=== PATIENT | female | born 1955 | race Caucasian/White ===

== ENCOUNTER → 2016-07-06 | Outpatient (CLI) | payer OTHER ==
[~2016-07-06] MED LIST: ADAL30TA10; ENAL5TAB98 PO; LEXA5TAB PO; PROT40TA PO
[2016-07-06 12:03] LABS: AUTOMATED NEUTROPHIL # 3.1 TH/MM3 (1.8-7.7); BASOPHIL % 0.2 % (0.0-2.0); EOSINOPHIL # 0.1 TH/MM3 (0-0.4); EOSINOPHIL % 2.1 % (0.0-4.0); HEMATOCRIT 38.8 % (35.0-46.0); LYMPH % 43.4 % (9.0-44.0); LYMPHOCYTE # 2.7 TH/MM3 (1.0-4.8); MEAN CELL VOLUME 95.6 FL (80.0-100.0); MEAN CORPUSCULAR HEMOGLOBIN 32.2 PG (27.0-34.0); MEAN CORPUSCULAR HGB CONC 33.7 % (32.0-36.0); MONO % 3.8 % (0.0-8.0); NEUT % 50.5 % (16.0-70.0); PLATELET COUNT 300 TH/MM3 (150-450); RED BLOOD COUNT 4.06 MIL/MM3 (4.00-5.30); RED CELL DISTRIBUTION WIDTH 13.9 % (11.6-17.2); WHITE BLOOD COUNT 6.2 TH/MM3 (4.0-11.0)
[2016-07-06 12:10] LABS: HEMO FLAGS AUTO DIFF
[2016-07-06 12:36] LABS: ALKALINE PHOSPHATASE 85 U/L (45-117); ALT (GPT) 31 U/L (10-53); ANION GAP 9 MEQ/L (5-15); AST (GOT) 22 U/L (15-37); BICARBONATE 27.7 MEQ/L (21.0-32.0); BLOOD UREA NITROGEN 13 MG/DL (7-18); CHLORIDE 104 MEQ/L (98-107); GLOMERULAR FILTRATION RATE 67 ML/MIN (>89); GLUCOSE,FASTING 100 MG/DL (74-99); HDL CHOLESTEROL 71.8 MG/DL (40.0-60.0); LDL CHOLESTEROL 85 MG/DL (0-99); POTASSIUM 4.3 MEQ/L (3.5-5.1); SODIUM (NA) 141 MEQ/L (136-145); TOTAL BILIRUBIN ADULT 0.3 MG/DL (0.2-1.0)
[2016-07-06 12:56] LABS: SCAN/DIFF AUTO DIFF CONFIRMED
[2016-07-06 12:57] LABS: PLATELET ESTIMATE SMEAR NORMAL (NORMAL); PLATELET MORPHOLOGY NORMAL (NORMAL)
[2016-07-13 10:15] LABS: HEMOGLOBIN A1a ND %
[2016-07-13 10:16] LABS: HEMOGLOBIN A1b ND %; HEMOGLOBIN Ao ND %; HEMOGLOBIN CHb ND %; HEMOGLOBIN F ND %; HEMOGLOBIN LA1C ND %; HEMOGLOBIN P3 ND %
== END ==
LOC: CLAB 11:38
PROVIDERS: ATTEND Family Medicine
DX: Z00.00 Encounter for general adult medical examination without abnormal findings (principal); R73.09 Other abnormal glucose; E78.2 Mixed hyperlipidemia; Z79.899 Other long term (current) drug therapy
CPT/HCPCS: 36415; 80053; 80061; 83036; 85025

== ENCOUNTER → 2017-01-05 | Outpatient (CLI) | payer OTHER ==
[2017-01-05 10:01] LABS: HDL CHOLESTEROL 66.7 MG/DL (40.0-60.0); INDIRECT BILIRUBIN 0.4 MG/DL (0.0-0.8); TOTAL BILIRUBIN ADULT 0.5 MG/DL (0.2-1.0)
== END ==
LOC: CLAB 08:49
PROVIDERS: ATTEND Family Medicine
DX: E78.2 Mixed hyperlipidemia (principal); Z79.899 Other long term (current) drug therapy
CPT/HCPCS: 36415; 80061; 80076

== ENCOUNTER → 2017-07-08 | Outpatient (CLI) | payer OTHER ==
[2017-07-08 08:55] LABS: AUTOMATED NEUTROPHIL # 3.8 TH/MM3 (1.8-7.7); BASOPHIL # 0.1 TH/MM3 (0-0.2); BASOPHIL % 1.4 % (0.0-2.0); EOSINOPHIL # 0.2 TH/MM3 (0-0.4); EOSINOPHIL % 2.9 % (0.0-4.0); HEMATOCRIT 37.9 % (35.0-46.0); HEMOGLOBIN 13.2 GM/DL (11.6-15.3); LYMPH % 31.3 % (9.0-44.0); LYMPHOCYTE # 2.1 TH/MM3 (1.0-4.8); MEAN CELL VOLUME 94.9 FL (80.0-100.0); MEAN CORPUSCULAR HGB CONC 34.8 % (32.0-36.0); MEAN PLATELET VOLUME 7.2 FL (7.0-11.0); MONOCYTE # 0.5 TH/MM3 (0-0.9); NEUT % 57.4 % (16.0-70.0); PLATELET COUNT 327 TH/MM3 (150-450); RED BLOOD COUNT 3.99 MIL/MM3 (4.00-5.30); RED CELL DISTRIBUTION WIDTH 13.6 % (11.6-17.2); WHITE BLOOD COUNT 6.6 TH/MM3 (4.0-11.0)
[2017-07-08 09:22] LABS: ALBUMIN 3.9 GM/DL (3.4-5.0); AST (GOT) 20 U/L (15-37); BICARBONATE 26.7 MEQ/L (21.0-32.0); BLOOD UREA NITROGEN 12 MG/DL (7-18); CALCIUM 8.9 MG/DL (8.5-10.1); CHLORIDE 102 MEQ/L (98-107); CREATININE 0.98 MG/DL (0.50-1.00); GLOMERULAR FILTRATION RATE 57 ML/MIN (>89); GLUCOSE,FASTING 109 MG/DL (74-99); SODIUM (NA) 135 MEQ/L (136-145)
[2017-07-08 09:23] LABS: ALT (GPT) 33 U/L (10-53); CHOLESTEROL 213 MG/DL (120-200); TRIGLYCERIDES 182 MG/DL (42-150)
[2017-07-08 09:26] LABS: ALKALINE PHOSPHATASE 77 U/L (45-117); CHOLESTEROL/ HDL RATIO 3.16 RATIO; HDL CHOLESTEROL 67.2 MG/DL (40.0-60.0); LDL CHOLESTEROL 109 MG/DL (0-99); TOTAL BILIRUBIN ADULT 0.6 MG/DL (0.2-1.0); TOTAL PROTEIN 8.1 GM/DL (6.4-8.2)
== END ==
LOC: CLAB 08:27
PROVIDERS: ATTEND Family Medicine
DX: E78.2 Mixed hyperlipidemia (principal); R73.09 Other abnormal glucose; I10 Essential (primary) hypertension; Z79.899 Other long term (current) drug therapy
CPT/HCPCS: 36415; 80053; 80061; 85025

== ENCOUNTER 2017-11-23 09:31 | Emergency (ER) | payer OTHER ==
[~2017-11-23] VITALS: Ht 170.2 cm; Wt 90.0 kg
[2017-11-23 09:47] VITALS: BP 118/71; PULSE 88; RESP 18; TEMP 98; O2SAT 97
[2017-11-23] MEDS ORDERED: KETOROLAC TROMETHAMINE 60 MG/2 ML (IM) VIAL IM ONE (10:15)
[2017-11-23] MEDS ORDERED: ORPHENADRINE INJ 60 MG/2 ML AMP IM ONE (10:15)
--- NOTE | 2017-11-23 10:24 | PD ---
HPI Chief Complaint: Pain: Acute or Chronic Time Seen by Provider: 09:54 Travel History International Travel<30 days: No Contact w/Intl Traveler<30days: No Traveled to known affect area: No History of Present Illness HPI 62-year-old female presents to the emergency department for evaluation of left hip and left knee pain that started 1 week ago. She denies any traumatic injury. She states the pain is worse with ambulation. Patient denies any fevers or chills. No loss of bowel or bladder control. No saddle anesthesias. Patient is unsure if the pain starts in the hip and radiates down to the knee or she has 2 separate pain issues. She does report history of osteoarthritis and had bilateral hip replacements. Patient reports history of hypertension and is on antihypertensives, but cannot recall the names. She denies any other chronic medical problems. Current pain is 10/10 to the left hip and left knee. No exacerbating or alleviating factors. Moderate severity. PFSH Past Medical History Asthma: No Blood Disorders: No Heart Rhythm Problems: No Cancer: No Cardiovascular Problems: Yes High Cholesterol: No Chest Pain: No Congestive Heart Failure: No COPD: No Endocrine: No Gastrointestinal Disorders: No Genitourinary: No Hypertension: Yes Immune Disorder: No Musculoskeletal: No Neurologic: No Psychiatric: No Reproductive: No Respiratory: Yes Myocardial Infarction: No Sleep Apnea: No Influenza Vaccination: Yes ?: Not Tubal Ligation: Yes Past Surgical History Abdominal Surgery: No AICD: No Arteriovenous Shunt: No Cardiac Surgery: No Ear Surgery: No Endocrine Surgery: No Eye Surgery: No Genitourinary Surgery: No Gynecologic Surgery: Yes (TUBALIGATION) Insulin Pump: No Joint Replacement: Yes (BILATERAL HIP) Neurologic Surgery: No Oral Surgery: No Pacemaker: No Prostatectomy: Yes (galo hip) Thoracic Surgery: No Other Surgery: Yes Social History Alcohol Use: Yes (5 BEERS DAILY) Tobacco Use: No (QUIT 2012) Substance Use: No Allergies-Medications (Allergen,Severity, Reaction): Coded Allergies: No Known Allergies (Verified , 07/03/11) Reported Meds & Prescriptions Reported Meds & Active Scripts Active Protonix (Pantoprazole Sodium) 40 Mg Tab 40 Mg PO DAILY Reported Adalat Cc 30 mg (Nifedipine) 30 Mg Tab 0 UNKNOWN DOSE Lexapro (Escitalopram Oxalate) 5 Mg Tab 0 PO DAILY UNKNOWN DOSE Vasotec (Enalapril Maleate) 5 Mg Tab 0 PO UNKNOWN DOSE Review of Systems Except as stated in HPI: all other systems reviewed are Neg Physical Exam Narrative GENERAL: Well-nourished, well-developed female patient, ambulatory. Afebrile. SKIN: Focused skin assessment warm/dry. No skin changes. HEAD: Normocephalic. Atraumatic. EYES: No scleral icterus. No injection or drainage. NECK: Supple, trachea midline. No JVD or lymphadenopathy. CARDIOVASCULAR: Regular rate and rhythm without murmurs, gallops, or rubs. Bilateral radial and pedal pulses are 2+. RESPIRATORY: Breath sounds equal bilaterally. No accessory muscle use. Lung sounds are clear to auscultation. GASTROINTESTINAL: Abdomen soft, non-tender, nondistended. MUSCULOSKELETAL: No cyanosis, or edema. Patient has tenderness over left lumbar paraspinal musculature, left lateral hip, left posterior knee. No obvious deformity. Pain is reproduced with movement of the left leg. BACK: Nontender without obvious deformity. No CVA tenderness. No midline spinal tenderness. Data Data Last Documented VS Vital Signs Date Time Temp Pulse Resp B/P (MAP) Pulse Ox O2 Delivery O2 Flow Rate FiO2 11/23/17 09:47 98.0 88 18 118/71 (87) 97 Orders Orders Hip, Uni(Ap&Lat) W Ap Pelvis (11/23/17 ) Knee, Complete (4vws) (11/23/17 ) Us Leg Venous Doppler (11/23/17 ) Ketorolac Inj (Toradol Inj) (11/23/17 10:15) Orphenadrine Inj (Norflex Inj) (11/23/17 10:15) MDM Medical Decision Making Medical Screen Exam Complete: Yes Emergency Medical Condition: Yes Medical Record Reviewed: Yes Interpretation(s) Last Impressions Lower Extremity Ultrasound 11/23/17 0000 Signed Impressions: CONCLUSION: 1. Negative study with no evidence of deep venous thrombosis. Knee X-Ray 11/23/17 0000 Signed Impressions: CONCLUSION: Degenerative changes. Trace joint effusion. No fracture Hip and Pelvis X-Ray 11/23/17 0000 Signed Impressions: CONCLUSION: Status post bilateral hip arthroplasty with no evidence of fracture or loosenin g. Differential Diagnosis Osteoarthritis versus sciatica versus sprain versus fracture versus DVT Narrative Course 62-year-old female presents to the emergency department for a left hip and left knee pain. She is unsure if she is radiation the pain are 2 separate issues. She denies a traumatic injury. No red flag symptoms. X-ray of the left hip with pelvis and x-ray of the left knee are ordered and pending. DVT unlikely, however, venous Doppler ultrasound left lower extremity is ordered and pending. Patient is given Toradol 60 mg IM, Norflex 60 mg IM for pain. X-ray of the left hip with pelvis shows status post bilateral hip arthroplasty with no evidence of fracture or loosening. X-ray of the left knee shows degenerative changes, trace joint effusion, no fracture. US is negative study with no evidence of deep venous thrombosis. Patient will be discharged prescription for Medrol Dosepak, naproxen, Robaxin. She is to follow orthopedic as she has scheduled. She is to return here for any acute worsening of symptoms. The patient was discharged in stable condition with instructions, including return instructions and follow up instructions. Diagnosis Primary Impression: Left hip pain Additional Impression: Left knee pain Qualified Codes: M25.562 - Pain in left knee Referrals: Primary Care Physician call for appointment Patient Instructions: General Instructions, Hip Pain (ED) Departure Forms: Tests/Procedures, Work Release Enter return to work date: Nov 25, 2017 Additional Instructions: Take naproxen as directed as needed for pain. Take Robaxin as directed as needed. Take Medrol Dosepak as directed. Heating pad on low for 20 minutes 4-5 times daily. Follow-up with a primary care physician. Return to the emergency department for any acute worsening of symptoms. Med/Other Pt SpecificInfo: Prescription(s) given Scripts Methylprednisolone Dosepak (Medrol Dosepak) 4 Mg Dspk 4 MG PO DIRECTED, #1 DSPK 0 Refills Per Pharmacist direction Prov: Tabitha Carcamo 11/23/17 Methocarbamol (Robaxin) 750 Mg Tab 750 MG PO TID Y for MUSCLE SPASM, #21 TAB 0 Refills Prov: Tabitha Carcamo 11/23/17 Naproxen (Naproxen) 375 Mg Tab 375 MG PO BID Y for PAIN SCALE 1 TO 10, #60 TAB 0 Refills Prov: Tabitha Carcamo 11/23/17 Disposition: 01 DISCHARGE HOME Condition: Stable Tabitha Carcamo November 23, 2017 10:24
--- NOTE | 2017-11-23 10:43 | RADRPT ---
EXAM DATE: 11/23/2017 10:40 AM EDT AGE/SEX: 62 years / Female INDICATIONS: Left leg pain. CLINICAL DATA: This is the patient's initial encounter. Patient reports that signs and symptoms have been present for 1 week and indicates a pain score of 10/10. MEDICAL/SURGICAL HISTORY: Hypertension. Claustrophobia. Tubal ligation. Bilateral hip replacem ent. COMPARISON: No prior [facility] exams available for comparison. TECHNIQUE: Venous ultrasound of both lower extremities was performed from the inguinal ligament to t he proximal calf. Real-time, color Doppler and spectral tracing, compression and augmentation techni ques were used. FINDINGS: There is normal compressibility of the deep venous system from the inguinal region to the proximal ca lf. No echogenic clot is seen in the lumen of the common femoral, femoral, popliteal, and posterior tibial veins. There is a normal response of the venous system to proximal and distal augmentation an d respiration. CONCLUSION: 1. Negative study with no evidence of deep venous thrombosis. Electronically signed by: Jett Delgado MD 11/23/2017 10:42 AM EDT
--- NOTE | 2017-11-23 11:14 | RADRPT ---
EXAM DATE: 11/23/2017 11:06 AM EDT AGE/SEX: 62 years / Female INDICATIONS: Left hip pain, no known trauma. CLINICAL DATA: This is the patient's initial encounter. Patient reports that signs and symptoms have been present for 1 month and indicates a pain score of 10/10. MEDICAL/SURGICAL HISTORY: . osteoarthritis . bilateral hip replacements. COMPARISON: No prior [facility] exams available for comparison. FINDINGS: Trace joint effusion is evident. There is minimal loss of articular cartilage in the medial compartme nt. Osteophytes are projected into the patellofemoral femoral compartment. No fracture CONCLUSION: Degenerative changes. Trace joint effusion. No fracture Electronically signed by: Beltran Solis MD 11/23/2017 11:13 AM EDT
--- NOTE | 2017-11-23 11:28 | RADRPT ---
EXAM DATE: 11/23/2017 11:23 AM EDT AGE/SEX: 62 years / Female INDICATIONS: Left hip pain CLINICAL DATA: This is the patient's initial encounter. Patient reports that signs and symptoms have been present for 1 month and indicates a pain score of 10/10. MEDICAL/SURGICAL HISTORY: . osteoarthritis . bilateral hip replacements. COMPARISON: No prior [facility] exams available for comparison. FINDINGS: AP and oblique views of the left hip were obtained as well as an AP view of the pelvis. The patient i s status post bilateral hip arthroplasty. There is diffuse osteopenia with no acute fracture or malal ignment. Degenerative disc changes are noted in the lower lumbar spine. CONCLUSION: Status post bilateral hip arthroplasty with no evidence of fracture or loosening. Electronically signed by: Jett Delgado MD 11/23/2017 11:26 AM EDT
[2017-11-23] MEDS ORDERED: ROBA750T PO (11:51)
[2017-11-23] MEDS ORDERED: MEDR4PAK PO (11:51)
[2017-11-23] MEDS ORDERED: NAPR-855 PO (11:51)
== END 2017-11-23 12:14 | disposition home or self-care (01) ==
LOC: NEPD 09:31
DX: M25.552 Pain in left hip (principal); M25.562 Pain in left knee; M79.605 Pain in left leg; I10 Essential (primary) hypertension; Z87.891 Personal history of nicotine dependence; Z96.643 Presence of artificial hip joint, bilateral
CPT/HCPCS: 73502; 73564; 93971; 96372; 99284; J1885; J2360